=== PATIENT | male | born 1930 | race Caucasian/White ===

== ENCOUNTER → 2017-07-17 | Outpatient (CLI) | payer MEDICARE, OTHER ==
--- NOTE | 2017-07-17 14:41 | RADIOLOGY REPORT (SQ) ---
EXAM DESCRIPTION: MRI LT LOWER EXTREMITY WITHOUT COMPLETED DATE/TIME: 07/17/2017 1:52 pm REASON FOR STUDY: PAIN IN LEFT THIGH/FEMUR (M79.652) COMPARISON: None. TECHNIQUE: Axial coronal and sagittal T1 and fat-sat T2 weighted images of the left thigh, to includ e the hip joint on coronal imaging, and joint on sagittal imaging. LIMITATIONS: None. FINDINGS: Normal bone marrow signal. No findings worrisome for aggressive marrow replacement or occ ult fracture. Normal signal in the major left side muscle groups. No soft tissue masses over the left thigh. Normal flow signal in the left femoral arteries and veins in the thigh. No gross left knee or left hip joint effusion IMPRESSION: No MRI findings to explain history of left thigh pain. TECHNICAL DOCUMENTATION: JOB ID: [id number] [employer] All Rights Reserved Reading location - IP/workstation name: [facility]
== END ==
LOC: RAD 12:09
PROVIDERS: ATTEND Physician Assistant
DX: M79.652 Pain in left thigh (principal)